=== PATIENT | female | born 1980 | race Caucasian/White ===

== ENCOUNTER 2021-11-04 05:04 | Day surgery (SDC) | payer OTHER ==
[2021-10-31 16:16] VITALS: BMI 30.7
[2021-11-04] MEDS ORDERED: LIDOCAINE HCL/PF 2% SDV 5ML VIAL ONE (10:14)
[2021-11-04] MEDS ORDERED: PROPOFOL 40 ML ONE (10:14)
[2021-11-04] MEDS ORDERED: ROCURONIUM BROMIDE 50 MG/5 ML SYRINGE ONE (10:14)
[2021-11-04] MEDS ORDERED: ceFAZolin SODIUM 1 GM VIAL ONE (10:15)
[2021-11-04] MEDS ORDERED: DEXAMETHASONE SOD PHOSPHATE 4 MG/1 ML VIAL ONE (10:15)
[2021-11-04] MEDS ORDERED: MIDAZOLAM HCL 2 MG/2 ML SINGLE DOSE VIAL ONE ×2 (10:16→11:47)
[2021-11-04] MEDS ORDERED: ceFAZolin SODIUM 1 GM VIAL IVPB ONE (12:30)
[2021-11-04] MEDS ORDERED: SUGAMMADEX SODIUM 200 MG/2 ML VIAL ONE ×2 (12:56)
[2021-11-04] MEDS ORDERED: BUPIVACAINE HCL/PF 0.5% (5 MG/ML) 30 ML VIAL IJ ONE (13:15)
[2021-11-04] MEDS ORDERED: oxyCODONE HCL 5 MG TABLET PO PRN ×2 (14:57)
[2021-11-04] MEDS ORDERED: ONDANSETRON 4 MG/2 ML VIAL IVPUSH PRN (14:57)
[2021-11-04] MEDS ORDERED: LACTATED RINGERS SOLUTION 1,000 ML IV SCH (15:00)
[2021-11-04 16:03] VITALS: RESP 20
[2021-11-04] MEDS ORDERED: ONDANSETRON 4 MG/2 ML VIAL ONE (19:10)
[2021-11-04 20:00] VITALS: TEMP 97.1
[2021-11-04 20:03] VITALS: BP 117/74; PULSE 75
== END 2021-11-04 19:15 | disposition home or self-care (01) ==
LOC: JASU-SURG 05:04
PROVIDERS: ATTEND Obstetrics & Gynecology
PROC: 0UT74ZZ Resection of Bilateral Fallopian Tubes, Percutaneous Endoscopic Approach (ICD-10-PCS; principal; 2021-11-04 09:00)
PROC: 0UB98ZZ Excision of Uterus, Via Natural or Artificial Opening Endoscopic (ICD-10-PCS; 2021-11-04 09:00)
PROC: 0HBCXZZ Excision of Left Upper Arm Skin, External Approach (ICD-10-PCS; 2021-11-04 09:00)
DX: Z30.2 Encounter for sterilization (principal); D25.0 Submucous leiomyoma of uterus
CPT/HCPCS: 88300-TC; 88305-TC; 94760